=== PATIENT | female | born 1985 | race Hispanic/Latino ===

== ENCOUNTER 2017-11-30 17:17 | Inpatient (IN) | payer OTHER ==
[2017-11-30 17:43] VITALS: BMI 37.2
[2017-11-30] MEDS ORDERED: Penicillin G Potassium 5 MU in Sodium Chloride 0.9% 50 ML IVPB ONE (17:52)
[2017-11-30] MEDS ORDERED: Oxytocin 30 units/LR 500ML 30 U/500 ML BAG IV SCH (18:00)
--- NOTE | 2017-11-30 18:19 | OBHP ---
Datetime: 11/30/2017 17:41 IP Adm Impression: Term, intrauterine ; No Active Labor; Ruptured Membranes IP Admit Plan: Admit to unit; Initiate labor induction protocol Admit Comment, IP Provider: IUP at 39w c/o gush of fluid fom vagina. Occ CTX; no VB; +FM PNC: Dr Mccarty/ GBS+ PMH: denies PSH denies Allergy sulfa PSoH: cristobal smoking ETOH drugs POBGYNH: TOPx 2; x 1 A: IUP a 39w SROM GBS+ PLAN A; IUP at 39w SROM - GBS+ not in labor PLAN: Admit to L*D PCN/IV access/regular diet for dinner spoke with PMD Pelvic Type - PN: Adequate Extremities - PN: Normal Abdomen - PN: Normal Back - PN: Normal Lungs - PN: Normal HEENT - PN: Normal General - PN: Normal Presentation-Admit: Vertex FHR - Baseline A Provider: 120 Amniotic Fluid Color, Provider: Clear Membranes, Provider: Ruptured Pool Provider: Positive IP Hx Assessment: The History has been Reviewed and is Current IP Chief Complaint: Uterine contractions; Suspected ruptured membranes NICHD Variability Prov Fetus A: Moderate 6-25bpm NICHD Accel Fetus A IP Provider: [id number] FHR Category Provider Fetus A: Category I Dilatation, Provider: ROGELIO
[2017-11-30 19:01] LABS: BASO % 0.4 % (0.0-2.0); EOS % 0.4 % (0.0-4.0); HEMOGLOBIN 12.7 g/dL (12.0-16.0); LYMPH # 1.6 K/uL (1.0-4.3); LYMPH % 14.8 % (20.0-40.0); MEAN CELL VOLUME 94.6 fl (81.0-99.0); MEAN CORPUSCULAR HGB CONC 33.8 g/dL (33.0-37.0); MONO # 0.7 K/uL (0.0-0.8); MONO % 6.4 % (0.0-10.0); NEUT # 8.4 K/uL (1.8-7.0); NRBC % 0.1 % (0.0-0.0); RBC 3.98 Mil/uL (3.80-5.20); RED CELL DISTRIBUTION WIDTH 13.4 % (11.5-14.5); WHITE BLOOD COUNT 10.8 K/uL (4.8-10.8)
[2017-11-30] MEDS ORDERED: Penicillin G 5 Million Unit Vial IVPB ONE (19:20)
[2017-11-30] MEDS ORDERED: Nalbuphine 20 mg/ml Inj (1 ml) IVP PRN (23:32)
[2017-12-01] MEDS ORDERED: Lactated Ringer's 1,000 ML IV SCH ×2 (02:30→03:30)
[2017-12-01] MEDS ORDERED: Fentanyl/Bupivacaine HCl 250 ML EPI ONE (03:52)
[2017-12-01] MEDS ORDERED: Oxycodone/Acetaminophen 5/325 mg Tab PO PRN ×4 (07:49→15:15)
--- NOTE | 2017-12-01 07:50 | OBDS ---
MATERNAL INFORMATION Estimated Blood Loss (ml): 250ml Maternal Complications: None Provider Comments: delivery of live baby girl 9/9 clear fluid cord with 3 vessels placenta int act MEMBRANES Membranes Rupture Method: Spontaneous Rupture of Membranes: 11/30/2017 15:00 Length of Rupture (hrs): 16.35 Amniotic Fluid Color: Clear Amniotic Fluid Amount: Small Amniotic Fluid Odor: Normal VAGINAL DELIVERY Episiotomy: None Laceration Extension: N/A Laceration Type: None Laceration Repair Note: none Count Comment: correct BABY A INFORMATION Infant Delivery Date/Time: 12/01/2017 07:21 Method of Delivery: Vaginal Born in Route : No : N/A Forceps: N/A Vacuum Extraction: N/A SHOULDER DYSTOCIA BABY A Infant Delivery Date/Time: 12/01/2017 07:21
[2017-12-01] MEDS ORDERED: Lansinoh for Breast Feeding Mothers TP ONE (22:23)
[2017-12-02 07:11] LABS: BASO # 0.1 K/uL (0.0-0.2); BASO % 0.5 % (0.0-2.0); EOS # 0.3 K/uL (0.0-0.7); EOS % 2.5 % (0.0-4.0); HEMOGLOBIN 11.4 g/dL (12.0-16.0); LYMPH # 2.8 K/uL (1.0-4.3); LYMPH % 25.6 % (20.0-40.0); MEAN CELL VOLUME 95.7 fl (81.0-99.0); MEAN CORPUSCULAR HEMOGLOBIN 32.3 pg (27.0-31.0); MEAN CORPUSCULAR HGB CONC 33.8 g/dL (33.0-37.0); MEAN PLATELET VOLUME 8.3 fl (7.2-11.7); MONO # 0.8 K/uL (0.0-0.8); MONO % 7.1 % (0.0-10.0); NEUT # 7.1 K/uL (1.8-7.0); NEUT % 64.3 % (50.0-75.0); RBC 3.51 Mil/uL (3.80-5.20); RED CELL DISTRIBUTION WIDTH 13.5 % (11.5-14.5); WHITE BLOOD COUNT 11.1 K/uL (4.8-10.8)
--- NOTE | 2017-12-03 15:41 | OBPPN ---
Datetime: 12/03/2017 15:37 PP Pain Prov: Within normal limits PP Nausea Prov: Denies PP Flatus Prov: Yes PP BM Prov: Yes PP Breasts Prov: Normal PP Heart Prov: Normal PP Lungs Prov: Normal PP Abdomen/Uterus Prov: Normal PP Lochia Prov: Normal PP Vulva/Perineum Prov: Normal PP CVA Tenderness Prov: Normal PP Extremities Prov: Normal PP Progress Prov: Normal PP Impression Prov: Normal progression PP Plan Prov: Continue present management PP Progress Note Prov: stable ppd2 exam dc home today IP PP Procedures: None Vital Signs Provider PP: Reviewed; Within Normal Limits
--- NOTE | 2017-12-03 15:52 | OBDCSUM ---
Datetime: 12/03/2017 15:40 Discharged to, Provider: Home Follow up at, Provider: Disch Instr Activity: May be up to bathroom; May be up for meals; May Shower Disch Instr Diet: Regular Discharge Instructions, Provider: Routine instructions given Discharge Diagnosis, Provider: Term Delivered Discharge Time: 12/03/2017 15:40 Follow up in weeks, Provider: 5-6 weeks Disch Referrals: None Disch Activity Restrictions: No exercising; No lifting; No driving; Minimize walking; Minimize stair -climbing; No sexual activity; Nothing in vagina - Mandan, tampons, douche Discharge Comment, Provider: dc home today rto 5-6 weeks call office if any problems Contraception after Delivery: Undecided
[2017-12-03 22:03] VITALS: BP 136/92; PULSE 72; RESP 20; TEMP 98.6; O2SAT 100
== END 2017-12-03 17:57 | disposition home or self-care (01) | DRG 373 ==
LOC: H.EROB2 17:17 → H.L&D 17:46 → H.OB/GYN 12-01 12:30
PROVIDERS: ADMIT Specialist; ATTEND Specialist
PROC: 10E0XZZ Delivery of Products of Conception, External Approach (ICD-10-PCS; principal; 2017-11-30)
PROC: 4A1HXCZ Monitoring of Products of Conception, Cardiac Rate, External Approach (ICD-10-PCS; 2017-11-30)
DX: O99.824 Streptococcus B carrier state complicating childbirth (principal); Z37.0 Single live birth; Z3A.39 39 weeks gestation of pregnancy; O69.1XX0 Labor and delivery complicated by cord around neck, with compression, not applicable or unspecified

== ENCOUNTER 2017-12-10 12:07 | Emergency (ER) | payer OTHER ==
[2017-12-10 12:22] VITALS: TEMP 98; BMI 34.2
[2017-12-10] MEDS ORDERED: Sodium Chloride 0.9% 1,000 ML IV STA (12:55)
--- NOTE | 2017-12-10 13:09 | ED PDOC ---
HPI: Hypertension/Hypotension Time Seen by Provider: 12/10/17 12:37 Chief Complaint (Nursing): High Blood Pressure History Per: Patient Onset/Duration Of Symptoms: Days (9) Current Symptoms Are (Timing): Still Present Additional Complaint(s): Elevated BP since 12/01. Has felt pressure at top of head but denies dizziness chest pain or SOB. Elevated BP early in but was not on meds. Past Medical History Vital Signs: Last Vital Signs Temp 98 F 12/10/17 12:24 Pulse 77 12/10/17 12:24 Resp 18 12/10/17 12:24 BP 146/102 H 12/10/17 12:24 Pulse Ox 98 12/10/17 12:24 - Medical History PMH: Arthritis (right foot), Bronchitis Denies: Depression, Diabetes, HTN - Family History Family History: States: Unknown Family Hx - Home Medications Home Medications: Ambulatory Orders Medication Instructions Recorded Labetalol [Trandate] 100 mg PO BID #60 tab 12/10/17 - Allergies Allergies/Adverse Reactions: Allergies Allergy/AdvReac Type Severity Reaction Status Date / Time Sulfa (Sulfonamide Allergy RASH Verified 05/08/16 09:03 Antibiotics) Review of Systems ROS Statement: Except As Marked, All Systems Reviewed And Found Negative Physical Exam - Reviewed Nursing Documentation Reviewed: Yes Vital Signs Reviewed: Yes - Physical Exam Appears: Positive for: Non-toxic, No Acute Distress Head Exam: Positive for: ATRAUMATIC, NORMAL INSPECTION, NORMOCEPHALIC Skin: Positive for: Normal Color, Warm, DRY Eye Exam: Positive for: EOMI, Normal appearance, PERRL ENT: Positive for: Normal ENT Inspection Neck: Positive for: Normal, Painless ROM Cardiovascular/Chest: Positive for: Regular Rate, Rhythm Respiratory: Positive for: CNT, Normal Breath Sounds Gastrointestinal/Abdominal: Positive for: Normal Exam, Soft Back: Positive for: Normal Inspection Extremity: Positive for: Normal ROM Neurologic/Psych: Positive for: Alert, Oriented - Laboratory Results Result Diagrams: 12/10/17 13:10 12/10/17 13:10 - ECG O2 Sat by Pulse Oximetry: 98 (RA) Pulse Ox Interpretation: Normal Medical Decision Making Medical Decision Making: Time: 1255 Plan: -- EKG -- CMP -- CBC with differentials -- Sodium Chloride 150 mls/hr Scribe Attestation: Documented by Aya Ghazy, acting as a scribe for Dr. Karel Jones. Provider Scribe Attestation: All medical record entries made by the Scribe were at my direction and personally dictated by me. I have reviewed the chart and agree that the record accurately reflects my personal performance of the history, physical exam, medical decision making, and the department course for this patient. I have also personally directed, reviewed, and agree with the discharge instructions and disposition. Disposition - Clinical Impression Clinical Impression: Hypertension - Patient ED Disposition Is Patient to be Admitted: No Discussed With Dr.: Karel Mccarty Counseled Patient/Family Regarding: Studies Performed, Diagnosis, Need For Followup, Rx Given - Disposition Referrals: Karel Mccarty MD [Staff Provider] - Disposition: Routine/Home Disposition Time: 14:51 Condition: FAIR Prescriptions: Labetalol [Trandate] 100 mg PO BID #60 tab Instructions: High Blood Pressure in Adults Forms: [facility] (Portuguese)
[2017-12-10 13:20] LABS: BASO # 0.1 K/uL (0.0-0.2); BASO % 1.2 % (0.0-2.0); EOS # 0.1 K/uL (0.0-0.7); EOS % 1.5 % (0.0-4.0); HEMOGLOBIN 13.9 g/dL (12.0-16.0); LYMPH # 1.9 K/uL (1.0-4.3); LYMPH % 27.6 % (20.0-40.0); MEAN CELL VOLUME 95.8 fl (81.0-99.0); MEAN CORPUSCULAR HEMOGLOBIN 31.8 pg (27.0-31.0); MEAN CORPUSCULAR HGB CONC 33.2 g/dL (33.0-37.0); MEAN PLATELET VOLUME 7.7 fl (7.2-11.7); MONO # 0.5 K/uL (0.0-0.8); MONO % 6.8 % (0.0-10.0); NEUT # 4.3 K/uL (1.8-7.0); NEUT % 62.9 % (50.0-75.0); RBC 4.36 Mil/uL (3.80-5.20); RED CELL DISTRIBUTION WIDTH 13.2 % (11.5-14.5); WHITE BLOOD COUNT 6.8 K/uL (4.8-10.8)
[2017-12-10 13:33] LABS: ALB/GLOB RATIO 1.1 (1.0-2.1); ALBUMIN 3.9 g/dL (3.5-5.0); ALT/SGPT 30 U/L (9-52); AST/SGOT 26 U/L (14-36); BLOOD UREA NITROGEN 11 mg/dl (7-17); CALCIUM 8.7 mg/dL (8.4-10.2); GFR AFRICAN-AMERICAN > 60; GFR NON-AFRICAN AMERICAN > 60
[2017-12-10 16:30] VITALS: BP 120/83; PULSE 75; RESP 16; O2SAT 100
--- NOTE | 2017-12-11 08:43 | CARD ---
APPROVED REPORT EKG Measurement Heart [id number] <Conclusion> Normal sinus rhythm Possible Left atrial enlargement Borderline ECG
== END 2017-12-10 16:54 | disposition home or self-care (01) ==
LOC: H.ER 12:07
DX: I10 Essential (primary) hypertension (principal)
CPT/HCPCS: 80053; 85025; 93005; 99284; J7040